=== PATIENT | female | born 1970 | race Caucasian/White ===

== ENCOUNTER 2019-07-19 11:26 | Outpatient (CLI) | payer OTHER, SELFPAY ==
--- NOTE | ~2019-07-19 | MMUS_ITS ---
EXAMINATION: MM screen LT diag RT w harika, US breast RT limited HISTORY: Six-month follow-up of right mammographic and sonographic findings. Screening examination of left breast. TECHNIQUE: Bilateral MLO and craniocaudal and right ML 3-D tomosynthesis images were performed and sy nthetic 2-D images were generated. CAD analysis was submitted and interpreted. High resolution target ed right breast ultrasound was performed. COMPARISON: 01/25/2019 diagnostic right digital mammogram and limited right breast ultrasound 06/13/2018 outside mammogram and ultrasound images 06/11/2018 and 03/14/2014 outside mammogram examinations BREAST PARENCHYMAL COMPOSITION: There are scattered areas of fibroglandular density. FINDINGS: MAMMOGRAPHIC FINDINGS: . No interval suspicious mass or architectural distortion, malignant calcification, skin thickening o r retraction or significant new or developing density of either breast is detected mammographically. ULTRASOUND: 9:00 4 cm from nipple: 2.6 x 5.8 x 5.5 mm sonolucency with through transmission, no internal vascular ity, likely benign cyst 9:00 4 cm from nipple: Approximately 2.5 mm rounded sonolucency without internal vascularity, with th rough transmission, likely a small cyst. No other suspicious finding is evident at 9:00 area. IMPRESSION: 1. No mammographic evidence of malignancy; benign-appearing cysts at 9:00, right breast 2. Routine annual mammographic screening follow-up is recommended. BI-RADS Category 2: Benign finding(s). Reviewed, dictated and finalized at location A. IMPRESSION: 1. No mammographic evidence of malignancy; benign-appearing cysts at 9:00, righ t breast 2. Routine annual mammographic screening follow-up is recommended. BI-RADS Category 2: Benign finding(s).
== END 2019-07-19 11:27 | disposition home or self-care (01) ==
PROVIDERS: PCP Family Medicine Sports Medicine; Visit Provider Family Medicine Sports Medicine
DX: R92.8 Other abnormal and inconclusive findings on diagnostic imaging of breast (principal)
CPT/HCPCS: 76642; 77063; 77065; 77067